=== PATIENT | male | born 1985 | race Hispanic/Latino ===

== ENCOUNTER 2019-07-15 19:42 | Emergency (ER) | payer SELFPAY ==
[2019-07-15] MEDS ORDERED: IBUPROFEN 600 MG TABLET ONE (20:16)
== END 2019-07-15 20:55 | disposition home or self-care (01) ==
LOC: EDH 19:42
DX: S93.401A Sprain of unspecified ligament of right ankle, initial encounter (principal); X58.XXXA Exposure to other specified factors, initial encounter; Y93.89 Activity, other specified; Y92.098 Other place in other non-institutional residence as the place of occurrence of the external cause; Y99.8 Other external cause status
CPT/HCPCS: 73610

== ENCOUNTER 2021-04-13 15:52 | Emergency (ER) | payer SELFPAY ==
[~2021-04-13] VITALS: Ht 182.9 cm; Wt 73.9 kg
[2021-04-13 16:22] LABS: BASOPHILS % (AUTO) 0.5 % (0.0-5.0); EOSINOPHILS % (AUTO) 0.7 % (0.0-8.0); HEMATOCRIT 50.8 % (42-54); LYMPHOCYTES % (AUTO) 10.6 % (21.0-51.0); MEAN CORPUSCULAR HEMOGLOBIN 28.7 pg (27.0-33.0); MEAN CORPUSCULAR HGB CONC 33.5 g/dL (32.0-36.0); MEAN CORPUSCULAR VOLUME 85.8 fL (79-99); MONOCYTES % (AUTO) 5.5 % (3.0-13.0); NEUTROPHILS % (AUTO) 82.3 % (40.0-77.0); PLATELET COUNT (AUTO) 295 K/uL (130-400); RED BLOOD CELL COUNT(AUTO) 5.92 MIL/uL (4.50-6.20); RED CELL DISTRIBUTION WIDTH 12.9 % (11.0-15.5); WHITE BLOOD COUNT (AUTO) 16.1 K/uL (4.8-10.8)
[2021-04-13 16:30] LABS: CREATININE 0.8 mg/dL (0.5-1.5); POTASSIUM 3.7 mmol/L (3.5-5.1)
[2021-04-13 16:35] LABS: ALBUMIN 4.6 g/dL (3.5-5.0); BILIRUBIN,TOTAL 0.4 mg/dL (0.2-1.0); TOTAL PROTEIN, SERUM 8.6 g/dL (6.0-8.3)
[2021-04-13] MEDS: 0.9%NACL 1000ML 1,000 ML IV ONE (17:12)
[2021-04-13] MEDS: ONDANSETRON 4MG INJ IVP ONE (17:12)
[2021-04-13 17:23] LABS: APPEARANCE,URINE Clear (CLEAR); BILIRUBIN,URINE Negative (NEGATIVE); COLOR,URINE Yellow (YELLOW); GLUCOSE, URINE (UA) Negative (NEGATIVE); KETONES,URINE Negative (NEGATIVE); LEUKOCYTE ESTERASE ,URINE Negative (NEGATIVE); NITRATE,URINE Negative (NEGATIVE); OCCULT BLOOD,URINE Negative (NEGATIVE); PROTEIN,URINE Negative (NEGATIVE); UROBILINOGEN,URINE 0.2 mg/dL (0.2-1.0)
[2021-04-13] MEDS ORDERED: ONDA4TAB10 PO (18:40)
[2021-04-13] MEDS ORDERED: DICY20TA2 PO (18:40)
[2021-04-13 18:48] VITALS: BP 124/74
== END 2021-04-13 18:52 | disposition home or self-care (01) ==
LOC: EDH 15:52
DX: K52.9 Noninfective gastroenteritis and colitis, unspecified (principal); R11.2 Nausea with vomiting, unspecified
CPT/HCPCS: 36415; 74176; 80053; 81003; 83690; 85025; 86140; 96374; 99284; J2405; J7030

== ENCOUNTER 2022-08-03 23:51 | Emergency (ER) | payer BC, OTHER ==
[~2022-08-03] VITALS: Ht 180.3 cm; Wt 74.4 kg
[~2022-08-03 23:51] MED LIST: DICY20TA2 PO; ONDA4TAB10 PO
[2022-08-04] MEDS ORDERED: ONDA-104 PO (01:34)
[2022-08-04] MEDS ORDERED: FAMO-136 PO (01:34)
[2022-08-04 01:41] VITALS: BP 128/78
== END 2022-08-04 01:57 | disposition home or self-care (01) ==
LOC: EDH 23:51
DX: R10.9 Unspecified abdominal pain (principal)